=== PATIENT | female | born 1990 | race Asian ===

== ENCOUNTER 2021-09-09 11:57 | Inpatient (IN) ==
[2021-09-09] MEDS ORDERED: Lactated Ringers 1000 ml BAG 1,000 ML IV ONE (12:27)
[2021-09-09] MEDS ORDERED: Buffered Lidocaine 1% SYRIN 1 ml INTRADERM ONE (12:27)
[2021-09-09] MEDS ORDERED: Lactated Ringers 1000 ml BAG 1,000 ML IV SCH ×2 (13:00→22:00)
[2021-09-09 13:37] LABS: Urine Benzodiazepine Screen None Detected (None Detect); Urine Cannabinoids Screen None Detected (None Detect); Urine Opiates Screen None Detected (None Detect)
[2021-09-09 14:12] LABS: ABS Lymphocytes 1.1 10^3/ul (1.0-4.8); ABS Monocytes 0.5 10^3/ul (0-0.8); ABS Neutrophils 4.8 10^3/ul (1.5-7.7); Eosinophil % 0.7 %; Hematocrit 38 % (35-47); Hemoglobin 12.9 g/dL (12.0-16.0); Lymphocyte % 17.1 %; Mean Corpuscular HGB Conc 34 g/dL (31-36); Mean Corpuscular Hemoglobin 33 pg (27-31); Mean Corpuscular Volume 95 fL (80-97); Mean Platelet Volume 8.6 fL (7.4-10.4); Platelet Count 240 10^3/uL (150-450); Red Blood Count 3.98 10^6 /uL (3.70-4.87); Red Cell Distribution Width 13 % (10-15); White Blood Count 6.5 10^3/uL (3.5-10.8)
[2021-09-09] MEDS ORDERED: Oxytocin in LR 20 UNITS/1,000 ML BAG IVPB SCH ×2 (17:00→22:00)
[2021-09-09] MEDS ORDERED: Lidocaine 1% MPF 5 ML VIAL ONE ×2 (20:47→22:52)
[2021-09-09] MEDS ORDERED: Witch Hazel PAD JAR TOPICAL PRN (21:51)
[2021-09-09] MEDS ORDERED: Dibucaine 1% OINT 28.35 GM TUBE PR PRN (21:51)
[2021-09-09] MEDS ORDERED: Glycerin ADULT 2.4 gm SUPP PR PRN (21:51)
[2021-09-10 07:08] LABS: ABS Eosinophils 0.1 10^3/ul (0-0.6); ABS Lymphocytes 1.5 10^3/ul (1.0-4.8); ABS Monocytes 0.9 10^3/ul (0-0.8); ABS Neutrophils 9.2 10^3/ul (1.5-7.7); Eosinophil % 0.7 %; Hematocrit 36 % (35-47); Hemoglobin 12.2 g/dL (12.0-16.0); Lymphocyte % 12.6 %; Mean Corpuscular HGB Conc 34 g/dL (31-36); Mean Corpuscular Hemoglobin 32 pg (27-31); Mean Corpuscular Volume 96 fL (80-97); Mean Platelet Volume 8.3 fL (7.4-10.4); Platelet Count 211 10^3/uL (150-450); Red Blood Count 3.79 10^6 /uL (3.70-4.87); Red Cell Distribution Width 13 % (10-15); White Blood Count 11.8 10^3/uL (3.5-10.8)
[2021-09-11] MEDS ORDERED: Lidocaine 1% MPF 5 ML VIAL ONE (00:02)
[2021-09-11 09:20] VITALS: BP 114/72
== END 2021-09-11 15:01 | disposition home or self-care (01) | DRG 807 ==
LOC: MCHOBOUT 11:57 → MCHOB 12:40
PROVIDERS: ADMIT Obstetrics & Gynecology; ATTEND Obstetrics & Gynecology